=== PATIENT | female | born 1990 ===

== ENCOUNTER 2021-11-14 16:58 | Emergency (ER) | payer SELFPAY ==
[2021-11-14 17:37] VITALS: BP 157/85
== END 2021-11-15 14:47 | disposition left against medical advice (07) ==
LOC: ED 16:58
DX: T19.2XXA Foreign body in vulva and vagina, initial encounter (principal); Z53.21 Procedure and treatment not carried out due to patient leaving prior to being seen by health care provider; X58.XXXA Exposure to other specified factors, initial encounter; Y93.89 Activity, other specified; Y92.89 Other specified places as the place of occurrence of the external cause; Y99.8 Other external cause status